=== PATIENT | male | born 1960 | race Caucasian/White ===

== ENCOUNTER 2016-12-26 14:50 | Emergency (ER) | payer BC ==
[2016-12-26] MEDS ORDERED: Sodium Chloride 0.9% 10 ML Syringe FLUSH PRN (15:24)
[2016-12-26] MEDS ORDERED: Nitroglycerin 0.4 MG Tab.SL SL ONE (15:24)
[2016-12-26] MEDS ORDERED: Morphine 4 MG/ML Syringe IVPUSH ONE (15:24)
[2016-12-26] MEDS ORDERED: Aspirin 81 MG Tab.Chew PO ONE (15:24)
--- NOTE | 2016-12-26 15:29 | EDM.PDOC ---
<Yuki Xiong - Last Filed: 12/27/16 00:12> ED HPI GENERAL MEDICAL PROBLEM - General Chief Complaint: Chest Pain Stated Complaint: CHEST PAINS, [id number] Time Seen by Provider: 12/26/16 15:25 - Related Data Allergies Allergy/AdvReac Type Severity Reaction Status Date / Time No Known Allergies Allergy Verified 12/26/16 14:52 Home Meds: Home Meds . [No Known Home Meds] 12/26/16 [History] Course - Vital Signs Last Recorded V/S: Last Vital Signs Temp 97.8 F 12/26/16 22:50 Pulse 76 12/26/16 22:50 Resp 18 12/26/16 22:50 BP 114/72 12/26/16 22:50 Pulse Ox 95 12/26/16 22:50 - Orders/Labs/Meds Orders: Active Orders 24 hr Category Date Time Status EKG 12 Lead [EKG Documentation Completion] [RC] URGENT Care 12/26/16 20:45 Active EKG Documentation Completion [RC] STAT Care 12/26/16 15:23 Active Oxygen Therapy Adult [Oxygen Therapy] [RC] ASDIRECTED Care 12/26/16 15:24 Active Saline Lock Insert [OM.PC] Stat Oth 12/26/16 15:20 Ordered Labs: Laboratory Tests 12/26/16 12/26/16 12/26/16 Range/Units 15:05 15:05 15:05 WBC 6.8 (5.0-10.0) 10^3/uL RBC 4.76 (4.6-6.2) 10^6/uL Hgb 15.1 (14.0-18.0) g/dL Hct 43.1 (40.0-54.0) % MCV 90.5 (80-100) fL MCH 31.7 (27.0-34.0) pg MCHC 35.0 (33.0-35.0) g/dL Plt Count 161 (150-450) 10^3/uL Neut % (Auto) 52.9 (42.2-75.2) % Lymph % (Auto) 33.1 (20.5-50.1) % [place] % (Auto) 10.2 H (2-8) % Eos % (Auto) 3.2 H (1.0-3.0) % Baso % (Auto) 0.6 (0.0-1.0) % Sodium 143 (135-145) mmol/L Potassium 3.6 (3.6-5.0) mmol/L Chloride 106 (101-111) mmol/L Carbon Dioxide 27.0 (21.0-31.0) mmol/L Anion Gap 13.6 BUN 17 (7-18) mg/dL Creatinine 1.3 (0.6-1.3) mg/dL Est Cr Clr Drug Dosing 69.19 mL/min Estimated GFR (MDRD) 58 Glucose 89 (74-105) mg/dL Calcium 9.0 (8.4-10.2) mg/dl Creatine Kinase 139 (26-174) IU/L Creatine Kinase Index 3.1 H (0-2.4) % CK-MB (CK-2) 4.30 (0.4-4.7) ng/mL Troponin I 0.05 H* (0.00-0.02) ng/ml 12/26/16 Range/Units 20:02 WBC (5.0-10.0) 10^3/uL RBC (4.6-6.2) 10^6/uL Hgb (14.0-18.0) g/dL Hct (40.0-54.0) % MCV (80-100) fL MCH (27.0-34.0) pg MCHC (33.0-35.0) g/dL Plt Count (150-450) 10^3/uL Neut % (Auto) (42.2-75.2) % Lymph % (Auto) (20.5-50.1) % [place] % (Auto) (2-8) % Eos % (Auto) (1.0-3.0) % Baso % (Auto) (0.0-1.0) % Sodium (135-145) mmol/L Potassium (3.6-5.0) mmol/L Chloride (101-111) mmol/L Carbon Dioxide (21.0-31.0) mmol/L Anion Gap BUN (7-18) mg/dL Creatinine (0.6-1.3) mg/dL Est Cr Clr Drug Dosing mL/min Estimated GFR (MDRD) Glucose (74-105) mg/dL Calcium (8.4-10.2) mg/dl Creatine Kinase (26-174) IU/L Creatine Kinase Index (0-2.4) % CK-MB (CK-2) (0.4-4.7) ng/mL Troponin I 0.06 H* (0.00-0.02) ng/ml Meds: Medications Discontinued Medications Generic Name Dose Route Start Last Admin Trade Name Freq PRN Reason Stop Dose Admin Aspirin 324 mg 12/26/16 15:24 12/26/16 15:28 Aspirin PO 12/26/16 15:25 324 mg ONETIME ONE Administration Enoxaparin Sodium 100 mg 12/26/16 21:31 12/26/16 21:42 Lovenox SUBCUT 12/26/16 21:32 100 mg ONETIME ONE Administration Morphine Sulfate 4 mg 12/26/16 15:24 12/26/16 15:29 Morphine IVPUSH 12/26/16 15:25 4 mg ONETIME ONE Administration Nitroglycerin 0.4 mg 12/26/16 15:24 12/26/16 15:28 Nitrostat SL 12/26/16 15:25 0.4 mg ONETIME ONE Administration Sodium Chloride 10 ml 12/26/16 15:24 12/26/16 15:28 Saline Flush FLUSH 10 ml ASDIRECTED PRN Administration Keep Vein Open - Re-Assessments/Exams Free Text/Narrative Re-Assessment/Exam: 12/26/16 21:31 TC, Dr Karla Ortega regarding patient. Accepting of transfer, further evaluation and management of unstable angina . Continues to be pain free. Family at bedside, Findings discussed and transfer recommendation. Patient and family agreeable. 12/27/16 00:12 Departure - Departure Disposition: DC/Tfer to Acute Hospital 02 Clinical Impression: Acute coronary syndrome Referrals: PCP,Unobtain [Primary Care Provider] - Forms: ED Department Discharge - My Orders Last 24 Hours: My Active Orders 12/26/16 15:20 Saline Lock Insert [OM.PC] Stat 12/26/16 15:23 EKG Documentation Completion [RC] STAT 12/26/16 15:24 Oxygen Therapy Adult [Oxygen Therapy] [RC] ASDIRECTED - Assessment/Plan Last 24 Hours: My Active Orders 12/26/16 15:20 Saline Lock Insert [OM.PC] Stat 12/26/16 15:23 EKG Documentation Completion [RC] STAT 12/26/16 15:24 Oxygen Therapy Adult [Oxygen Therapy] [RC] ASDIRECTED <Kit Whalen - Last Filed: 12/27/16 07:27> ED HPI GENERAL MEDICAL PROBLEM - General Source of Information: Reports: Patient History Limitations: Reports: No Limitations - History of Present Illness INITIAL COMMENTS - FREE TEXT/NARRATIVE: Pt states that he started having some midsternal chest pain about a month ago. States that it increased while running but subsided with resting. Pt states yesterday he began having chest pain that started midsternal and radiated outwords when he was walking and subsided with rest. States that today he experienced the same episode and became diaphoretic as well. Was seen in clinic and referred to ER. Onset: Today Duration: Waxing/Waning Location: Reports: Chest Quality: Reports: Burning Severity: Moderate Improves with: Reports: Immobilization Worsens with: Reports: Movement Context: Reports: Exercise Associated Symptoms: Reports: Diaphoresis Bilateral Chest Pain Score (Numeric/FACES): 3 Past Medical History - Past Surgical History Musculoskeletal Surgical History: Reports: Other (See Below) Other Musculoskeletal Surgeries/Procedures:: disk surgery and fusion on back Social & Family History - Family History Family Medical History: Noncontributory - Tobacco Use Smoking Status *Q: Former Smoker Used Tobacco, but Quit: Yes Month Tobacco Last Used: ? - Caffeine Use Caffeine Use: Reports: Coffee - Recreational Drug Use Recreational Drug Use: No ED ROS GENERAL - Review of Systems Review Of Systems: ROS reveals no pertinent complaints other than HPI. ED EXAM, GENERAL - Physical Exam Exam: See Below Exam Limited By: No Limitations General Appearance: Alert, WD/WN, No Apparent Distress Eye Exam: Bilateral Eye: PERRL Respiratory/Chest: No Respiratory Distress, Lungs Clear, Normal Breath Sounds, No Accessory Muscle Use, Chest Non-Tender Cardiovascular: Normal Peripheral Pulses, Regular Rate, Rhythm, No Edema, No Gallop, No JVD, No Murmur, No Rub GI/Abdominal: Normal Bowel Sounds, Soft, Non-Tender, No Organomegaly, No Distention, No Abnormal Bruit, No Mass Neurological: Alert, Oriented, CN II-XII Intact, Normal Cognition, Normal Gait, Normal Reflexes, No Motor/Sensory Deficits Course - Orders/Labs/Meds Labs: Laboratory Tests 0612/26/16 12/26/16 Range/Units 15:05 15:05 15:05 WBC 6.8 (5.0-10.0) 10^3/uL RBC 4.76 (4.6-6.2) 10^6/uL Hgb 15.1 (14.0-18.0) g/dL Hct 43.1 (40.0-54.0) % MCV 90.5 (80-100) fL MCH 31.7 (27.0-34.0) pg MCHC 35.0 (33.0-35.0) g/dL Plt Count 161 (150-450) 10^3/uL Neut % (Auto) 52.9 (42.2-75.2) % Lymph % (Auto) 33.1 (20.5-50.1) % [place] % (Auto) 10.2 H (2-8) % Eos % (Auto) 3.2 H (1.0-3.0) % Baso % (Auto) 0.6 (0.0-1.0) % Sodium 143 (135-145) mmol/L Potassium 3.6 (3.6-5.0) mmol/L Chloride 106 (101-111) mmol/L Carbon Dioxide 27.0 (21.0-31.0) mmol/L Anion Gap 13.6 BUN 17 (7-18) mg/dL Creatinine 1.3 (0.6-1.3) mg/dL Est Cr Clr Drug Dosing 69.19 mL/min Estimated GFR (MDRD) 58 Glucose 89 (74-105) mg/dL Calcium 9.0 (8.4-10.2) mg/dl Creatine Kinase 139 (26-174) IU/L Creatine Kinase Index 3.1 H (0-2.4) % CK-MB (CK-2) 4.30 (0.4-4.7) ng/mL Troponin I 0.05 H* (0.00-0.02) ng/ml 12/26/16 Range/Units 20:02 WBC (5.0-10.0) 10^3/uL RBC (4.6-6.2) 10^6/uL Hgb (14.0-18.0) g/dL Hct (40.0-54.0) % MCV (80-100) fL MCH (27.0-34.0) pg MCHC (33.0-35.0) g/dL Plt Count (150-450) 10^3/uL Neut % (Auto) (42.2-75.2) % Lymph % (Auto) (20.5-50.1) % [place] % (Auto) (2-8) % Eos % (Auto) (1.0-3.0) % Baso % (Auto) (0.0-1.0) % Sodium (135-145) mmol/L Potassium (3.6-5.0) mmol/L Chloride (101-111) mmol/L Carbon Dioxide (21.0-31.0) mmol/L Anion Gap BUN (7-18) mg/dL Creatinine (0.6-1.3) mg/dL Est Cr Clr Drug Dosing mL/min Estimated GFR (MDRD) Glucose (74-105) mg/dL Calcium (8.4-10.2) mg/dl Creatine Kinase (26-174) IU/L Creatine Kinase Index (0-2.4) % CK-MB (CK-2) (0.4-4.7) ng/mL Troponin I 0.06 H* (0.00-0.02) ng/ml Meds: Medications Discontinued Medications Generic Name Dose Route Start Last Admin Trade Name Freq PRN Reason Stop Dose Admin Aspirin 324 mg 12/26/16 15:24 12/26/16 15:28 Aspirin PO 12/26/16 15:25 324 mg ONETIME ONE Administration Enoxaparin Sodium 100 mg 12/26/16 21:31 12/26/16 21:42 Lovenox SUBCUT 12/26/16 21:32 100 mg ONETIME ONE Administration Morphine Sulfate 4 mg 12/26/16 15:24 12/26/16 15:29 Morphine IVPUSH 12/26/16 15:25 4 mg ONETIME ONE Administration Nitroglycerin 0.4 mg 12/26/16 15:24 12/26/16 15:28 Nitrostat SL 12/26/16 15:25 0.4 mg ONETIME ONE Administration Sodium Chloride 10 ml 12/26/16 15:24 12/26/16 15:28 Saline Flush FLUSH 10 ml ASDIRECTED PRN Administration Keep Vein Open Departure - Departure Time of Disposition: 23:40 Reason for Transfer *Q: Other (Angina) Condition: Good
[2016-12-26] MEDS ORDERED: Enoxaparin 100 MG/1 ML Syringe SUBCUT ONE (21:31)
[2016-12-26 22:50] VITALS: BP 114/72
--- NOTE | 2017-01-16 11:32 | EKG ---
12/26/2016 - NICK KELLY - TIME OF EK hours. EKG shows sinus rhythm, rate of 73 per minute. [facility] /[id number]
--- NOTE | 2017-01-16 11:35 | EKG ---
12/26/2016 - NICK KELLY - TIME OF [id number]. FINDINGS: EKG shows normal sinus rhythm at rate of 64 per minute. [facility] /[id number]
== END 2016-12-26 23:30 ==
LOC: DL.ED 14:50
DX: I24.9 Acute ischemic heart disease, unspecified (principal); Z87.891 Personal history of nicotine dependence
CPT/HCPCS: 36415; 71010; 80048; 82550; 82553; 84484; 85025; 93005; 94762; 96372; 96374; 99285; A9270; J1650; J2270; J7050

== ENCOUNTER 2018-10-31 06:00 | Day surgery (SDC) | payer BC ==
[~2018-10-31 06:00] MED LIST: Dextrose 5%-0.45% NaCl 1,000 ML IV SCH; Sodium Chloride 0.9% 10 ML Syringe FLUSH PRN
[2018-10-31] MEDS ORDERED: Midazolam 1 MG/ML 2 ML SDV IV ONE ×7 (06:01→07:07)
[2018-10-31] MEDS ORDERED: fentaNYL 100 MCG/2 ML SDV IV ONE ×3 (06:01→07:01)
[2018-10-31] MEDS ORDERED: fentaNYL 100 MCG/2 ML SDV ONE (06:16)
[2018-10-31] MEDS ORDERED: Midazolam 1 MG/ML 2 ML SDV ONE (06:16)
[2018-10-31 11:14] VITALS: BP 114/74
--- NOTE | 2018-10-31 11:38 | OR ---
DATE: 10/31/2018 PROCEDURE PERFORMED: Total colonoscopy. INSTRUMENT USED: [id number]-[id number] Olympus video colonoscope. PREMEDICATIONS: Fentanyl 100 mcg intravenous, Versed 4 mg intravenous. The procedure was done under pulse oximetry, BP recording, and alarm security or surveillance monitor. INDICATION: The patient with progressive constipation and intermittent rectal bleeding. Colonoscopic examination is done for detection of any polypoid lesions and removal, endoscopic hemostasis therapy if needed. DESCRIPTION OF PROCEDURE: Initial rectal exam was unremarkable. Rigid anoscopy showed small internal hemorrhoids without bleeding from them. The colonoscope was passed with ease up to the ileocecal area. Photographs were taken of the normal-appearing cecum, identified by landmarks of appendiceal orifice and double-bulged ileocecal folds. No bleeding was noted from any of the visualized areas at the commencement of the examination. The bowel preparation was found to be adequate, Montgomery scale 3. No stricture. No vascular ectasia. No large isolated ulcerations seen. No evidence of diffuse inflammatory bowel disease in the form of friability, contact bleeding, or ulcerations. No polyp or tumor mass identified. Probing the proximal sides of folds and flexures using adequate distention and clearing up the stool material, withdrawal of the scope was made cecum to rectum, time over 6 minutes. No bleeding was noted from any of the visualized areas at the completion of examination. IMPRESSION: Internal hemorrhoids. The patient tolerated the procedure well. [facility] /[id number]
== END 2018-10-31 09:20 | disposition home or self-care (01) ==
LOC: DL.ENDO 06:00
PROVIDERS: ATTEND Internal Medicine Gastroenterology
DX: K64.8 Other hemorrhoids (principal); N18.9 Chronic kidney disease, unspecified; E66.09 Other obesity due to excess calories; Z68.32 Body mass index [BMI] 32.0-32.9, adult; Z79.82 Long term (current) use of aspirin; Z87.891 Personal history of nicotine dependence; Z86.79 Personal history of other diseases of the circulatory system
CPT/HCPCS: 45378; J7042; G0121; J2250; J3010

== ENCOUNTER 2021-12-26 16:18 | Emergency (ER) | payer BC, OTHER ==
[2021-12-26] MEDS ORDERED: Sodium Chloride 0.9% 10 ML Syringe FLUSH PRN (16:21)
[2021-12-26 16:42] VITALS: BP 134/79; PULSE 71
[2021-12-26 16:57] LABS: ANION GAP 11.1 mEq/L (7-13)
== END 2021-12-26 17:28 | disposition home or self-care (01) ==
LOC: DL.ED 16:18
DX: R07.89 Other chest pain (principal); E66.9 Obesity, unspecified; Z68.32 Body mass index [BMI] 32.0-32.9, adult
CPT/HCPCS: 36415; 71045; 80053; 84484; 85025; 93005; 93010; 99284; 99285-25

== ENCOUNTER 2025-02-08 10:17 | Emergency (ER) | payer OTHER ==
[2025-02-08 11:34] LABS: BASOPHILS PERCENT AUTO 0.8 % (0.0-1.0); EOSINOPHILS PERCENT AUTO 2.6 % (1.0-3.0); LYMPHOCYTES PERCENT AUTO 27.0 % (20.5-50.1); MONOCYTES PERCENT AUTO 8.5 % (2-8); NEUTROPHILS PERCENT AUTO 61.1 % (42.2-75.2); PLATELET COUNT,PLT 161 10^3/uL (150-450); RED BLOOD CELL COUNT 5.02 10^6/uL (4.6-6.2); WHITE BLOOD CELL COUNT,WBC 6.2 10^3/uL (5.0-10.0)
[2025-02-08 12:31] LABS: A/G RATIO 1.1; ALANINE AMINOTRANSFERASE,ALT 36 U/L (16-63); ASPARTATE AMNIOTRANSFERASE,AST 22 U/L (15-37); BILIRUBIN TOTAL 0.7 mg/dL (0.2-1.0); BLOOD UREA NITROGEN,BUN 14 mg/dL (7-18); CARBON DIOXIDE,CO2 28 mmol/L (21-32); CHLORIDE,CL 104 mmol/L (98-107); CREATININE 1.11 mg/dL (0.70-1.30); EST CRCL DRUG DOSING (CG) 71.25 mL/min; ESTIMATED GFR 75 mL/min (>=60); GLUCOSE RANDOM 97 mg/dL (70-99); POTASSIUM,K 3.8 mmol/L (3.5-5.1); PROTEIN TOTAL,TP 7.0 g/dL (6.4-8.2); SODIUM,NA 138 mmol/L (136-145); TSH ULTRASENSITIVE 1.52 uIU/mL (0.36-3.74)
[2025-02-08 13:26] VITALS: BP 156/76; PULSE 82
== END 2025-02-08 13:18 ==
LOC: DL.ED 10:17
DX: G93.89 Other specified disorders of brain (principal); Z79.899 Other long term (current) drug therapy; Z95.5 Presence of coronary angioplasty implant and graft
CPT/HCPCS: 36415; 70450; 80053; 82607; 83735; 84443; 85025; 86140; 99285; A9270-GY